=== PATIENT | male | born 1980 | race Caucasian/White ===

== ENCOUNTER 2018-10-16 15:50 | Observation (INO) ==
[2018-10-16] MEDS ORDERED: ONDANSETRON 4 MG/2 ML VIAL IVP ONE (16:14)
[2018-10-16] MEDS ORDERED: MORPHINE SULFATE 4 MG/1 ML IVP ONE ×2 (16:14→17:51)
[2018-10-16] MEDS ORDERED: Sodium Chloride 0.9% 1,000 ML PRIMARY IV ONE ×2 (16:15→16:37)
[2018-10-16] MEDS ORDERED: ONDANSETRON 4 MG/2 ML VIAL ONE (16:35)
[2018-10-16 16:52] LABS: BILIRUBIN,URINE NEGATIVE (NEG); CLARITY,URINE CLEAR (CLEAR); COLOR,URINE YELLOW (Y); GLUCOSE, URINE (UA) NEGATIVE (NEG); OCCULT BLOOD,URINE Trace-intact (NEG); PROTEIN,URINE NEGATIVE (NEG); UROBILINOGEN,URINE 0.2 EU/dL (0.2)
[2018-10-16 17:02] LABS: BACTERIA,URINE RARE; RBC,URINE 0-3 /hpf; URINE SAMPLE TYPE CLEAN CATCH URINE
[2018-10-16 17:05] LABS: BLOOD UREA NITROGEN 20 mg/dL (7-22); BUN/CREATININE RATIO 15.38 (6-20); SERUM ALBUMIN 4.3 g/dL (3.5-4.8)
--- NOTE | 2018-10-16 17:20 | DI ---
XR PELVIS 1-2VW,10/16/2018 4:13 PM: Clinical History: Trauma Previous Exam: None at this facility. Findings: A single frontal radiograph of the pelvis is obtained, and demonstrates anatomic alignment without fr actures. There is new bone formation at the head neck junction of both hips. Evaluation of the lumbar spine is unremarkable. A nonobstructive bowel gas pattern is seen. Impression: 1. No fracture. 2. 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 Correlate clinically.
--- NOTE | 2018-10-16 17:32 | DI ---
CT Chest WO Contrast,10/16/2018 4:11 PM: Clinical History: Trauma Previous Exam: None at this facility. Findings: Multiple helically acquired CT images are obtained through the chest without contrast, and demonstrat e airspace disease within the right lung base. There is no evidence of pneumothorax. There are no infiltrate nor effusion. The ribs appear grossly normal. There is some subsegmental atelectasis extending from the major fissu re on the right. There is elevation of the right hemidiaphragm. Skeletal structures are unremarkable as well. There is no mediastinal lymphadenopathy. The upper abdomen is unremarkable. Skeletal structures are unremarkable. Impression: Airspace disease within the dependent portion of the right lung base as well as some curvilinear incr eased density extending from the major fissure to the right lung base posteriorly. This is consistent with mild contusion but there is no evidence of pneumothorax.
--- NOTE | 2018-10-16 17:36 | DI ---
CT Abdomen/Pelvis WO Contrast,10/16/2018 4:11 PM: Clinical History: Fall from a horse. Previous Exam: None at this facility. Findings: Multiple helically acquired CT images are obtained through the abdomen and pelvis without contrast. T here are nondisplaced fractures of the right L3 and L4 transverse processes. The lung bases demonstra te some subsegmental atelectasis on the right. The liver, kidneys, spleen, pancreas and adrenals are unremarkable. The urinary bladder is unremarkab le. The appendix is normal. There is no layering fluid. Small and large bowel loops are unremarkable. The anterior abdominal wall subcutaneous fat is normal. There is no intra-abdominal lymphadenopathy. Impression: 1. Nondisplaced right third and fourth lumbar transverse process fractures. 2. No solid or hollow visceral injury.
[2018-10-16 17:44] LABS: BASOPHILS # (AUTO) 0.03 10*3/UL; BASOPHILS % (AUTO) 0.3 % (0-1); EOSINOPHILS # (AUTO) 0.19 10*3/UL; EOSINOPHILS % (AUTO) 1.7 % (0-8); Hematocrit [HCT] 48.3 % (42.0-52.0); Hemoglobin [HGB] 16.3 g/dL (14.0-18.0); MEAN CORPUSCULAR HEMOGLOBIN 28.8 PG (27-31); MEAN CORPUSCULAR HGB CONC 33.7 g/dL (33-37); MEAN CORPUSCULAR VOLUME 85.5 FL (80-90); MEAN PLATELET VOLUME 10.8 FL (7.4-12.2); MONOCYTES # (AUTO) 0.52 10*3/UL (0.3-0.8); MONOCYTES % (AUTO) 4.7 % (5-15); NEUTROPHILS # (AUTO) 8.03 10*3/UL; RED BLOOD COUNT 5.65 10^6/uL (4.70-6.10)
[2018-10-16 17:46] LABS: PLATELET MORPHOLOGY COMMENT NORMAL MORPHOLOGY (NORM); RBC MORPHOLOGY COMMENT NORMAL MORPHOLOGY (NORM); WBC MORPHOLOGY COMMENT NORMAL MORPHOLOGY (NORM)
[2018-10-16 17:47] LABS: LIPASE 133 IU/L (23-300)
--- NOTE | 2018-10-16 17:47 | EKG ---
[address] [address] Measurements Intervals [place] Rate: 76 P: 31 CO: 175 QRS: 62 QRSD: 93 T: 53 QT: 368 QTc: 398 Interpretive Statements SINUS RHYTHM No previous ECG available for comparison Electronically Signed On 10-17-18 11:20:50 MST by Luis Fernando Katz [email or web address]
[2018-10-16] MEDS ORDERED: LORazepam 2 MG/1 ML VIAL IVP ONE (17:51)
[2018-10-16] MEDS ORDERED: ONDANSETRON 4 MG/2 ML VIAL IVP PRN (18:29)
[2018-10-16] MEDS ORDERED: [UNRECOGNIZED DRUG - OTHER] IH SCH (18:29)
[2018-10-16] MEDS ORDERED: BUDESONIDE IH SCH (18:29)
[2018-10-16] MEDS ORDERED: KETOROLAC 15 MG/1 ML VIAL IVP PRN (18:29)
[2018-10-16] MEDS ORDERED: FORMOTEROL FUMARATE IH SCH (18:29)
[2018-10-16] MEDS ORDERED: CALCIUM CARBONATE 500 MG (TUMS) CHEWABLE TABLET PO PRN (18:29)
[2018-10-16] MEDS ORDERED: ALBUTEROL SULFATE 8.5 GM HFA INHALER INH PRN (18:29)
[2018-10-16] MEDS ORDERED: LIDOCAINE W/ SODIUM BICARB 0.5 ML SYR SUBD PRN (18:29)
--- NOTE | 2018-10-16 18:43 | PDOC ---
Multiple Trauma HPI - General Chief Complaint: Trauma Stated Complaint: thrown from horse Date Seen by Provider: 10/16/18 Time Seen by Provider: 16:55 Source: POSITIVE: Patient, Spouse Exam Limitations: POSITIVE: No limitations Nurse's Notes Reviewed & Considered: Yes - Record Incomplete - History of Present Illness Initial Comments: This is a well-developed, well-nourished, 38-year-old male, who comes in today with complaints of back pain after being thrown off a horse. 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 He presents now with right-sided lower back pain and pelvic pain. He denies having hit his head and no loss of consciousness, denies any chest pain o r shortness of breath, no nausea vomiting or diarrhea, no hematuria dysuria, no rashes, no headache, no vision changes, no sore throat, no fever chills or sweats. Have you received a tetanus shot in the past 10 years?: Yes Body Location Affected: REPORTS: Back Timing: REPORTS: Abrupt Duration: 1 hour Severity: Severe Quality: REPORTS: "Pain" Location at Time of Onset: REPORTS: County Associated Symptoms: REPORTS: Recalls Injury, Recalls Coming to ER Any Prior Injuries Related to Current Complaint?: No - Patient Home Medications Home Medications: Home Medications Albuterol Sulfate [Proair Hfa] 8.5 gm IH PRN 10/16/18 Budesonide/Formoterol Fumarate [Symbicort 160-4.5 Mcg Inhaler] 10.2 gm IH PRN 10/16/18 - Patient Allergies Allergies/Adverse Reactions: Allergies Allergy/AdvReac Type Severity Reaction Status Date / Time No Known Allergies Allergy Unverified 10/16/18 16:06 Past Medical History - heen HEENT History: Denies History Cardiovascular History: Denies History Respiratory History: Asthma Gastrointestinal History: Denies History Genitourinary History: Denies History Endocrine History: Denies History Musculoskeletal History: Denies History Prosthesis or Implant: No Neurological History: Denies History Blood Disorders: Denies History Psychiatric History: Denies History History of Sexually Transmitted Diseases: No Male Reproductive History: Denies History Cancer History: Denies History In Past Year Been Physically Harmed or Verbally Threatened: No History of MDRO: No History of Other Communicable Diseases: No Tobacco Use: Never Smoker In the Past 12 Months, Have Used or Abuse Any Substance: None ROS Constitution: REPORTS: Denies Symptoms Cardiovascular: REPORTS: Denies Cardiac Symptoms Respiratory: REPORTS: Denies Resp Symptoms Neurological: REPORTS: Denies Neuro Symptoms Gastrointestinal: REPORTS: Denies GI Symptoms Endocrine: REPORTS: Denies Symptoms Musculoskeletal: REPORTS: Back Pain Genitourinary: REPORTS: Denies Symptoms Eyes: REPORTS: Denies Symptoms ENT: REPORTS: Denies Symptoms Skin: REPORTS: Denies Skin Symptoms Lympathic: REPORTS: Denies Lympathic Symptoms Immunologic: POSITIVE: Denies Symptoms Psychiatric: POSITIVE: Denies Psych Symptoms Multiple Trauma Exam - General Appearance General Appearance: POSITIVE: Alert, Cooperative, No Acute Distress, No Evidence of Trauma - HEENT Head / Face: POSITIVE: Atraumatic, Normal Inspection, No Facial Swelling Eyes: POSITIVE: Inspection Normal, PERRL, EOM's Intact, Eyelids Uninjured, Conjunctivae Uninjured, No Nystagmus, No Globe Trauma, Sclera Normal Ears: POSITIVE: Ears Normal Inspection, Auricle Normal Nose: POSITIVE: Inspection Normal, No Apparent Trauma, Nares Normal, No CSF Leak Oropharynx: POSITIVE: External Inspection Nml, Pharynx Inspect. Nml, Airway Intact, Voice Normal, Moist Mucous Membranes, No Oral Injury, Lips Normal, Gums Normal, No Drooling, No Thrush, Normal Gag Reflex Dental: POSITIVE: No Dental Injury - Pupil Size Pupil Size: 5 mm: Bilateral - Neck Neck: POSITIVE: Non Tender, Painless ROM, Trachea Midline, Nexus Criteria Negative - Respiratory / CVS Respiratory / CVS: POSITIVE: Chest Non Tender, No Ecchymosis, Breath Sounds Normal, No Respiratory Distress, Heart Sounds Normal, Regular Rate/Rhythm Peripheral Pulses: Radial (R): 4+ - Abdomen Abdomen: Soft: (All Quadrants), Normal Bowel Sounds: (All Quadrants), Denies Tenderness: (All Quadrants), No Splenomegaly: (All Quadrants), No Hepatomegaly: (All Quadrants), No Guarding: (All Quadrants), No Rebound: (All Quadrants), No Palpable Pulse: (All Quadrants), No Palpabale Mass: (All Quadrants), No Distenti on: (All Quadrants), No Rigidity: (All Quadrants) - Neuro / Psych Neuro / Psych: POSITIVE: Oriented X3, 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 Tenderness (Lumbar vertebrae and sacral vertebrae as well as the right SI joint.), CVA Tenderness (R), Muscle Spasm - Extremities Extremity Assessment: Non-Tender: (ALL), Normal ROM: (ALL), No Edema: (ALL), Normal Inspection: (ALL), No Swelling: (ALL), Pelvis Stable: (ALL) Joint Exam: POSITIVE: Joints Normal, Normal ROM, Normal Weight Bearing Procedures - Laceration/Wound Repair Did patient have a laceration repair: No Multiple Trauma Progress - Results Reviewed by me Xrays/CTs/US Reviewed by me: Yes Lab Results Reviewed by Me: Yes Lab Results:: Laboratory Results 10/16/18 10/16/18 10/16/18 16:39 16:39 16:39 WBC 11.00 H RBC 5.65 Hgb 16.3 Hct 48.3 MCV 85.5 MCH 28.8 MCHC 33.7 RDW Std Deviation 43.0 RDW Coeff of [place] 13.8 Plt Count 267 MPV 10.8 Immature Gran % (Auto) 0.3 Neut % (Auto) 73.0 Lymph % (Auto) 20.0 [place] % (Auto) 4.7 L Eos % (Auto) 1.7 Baso % (Auto) 0.3 Immature Gran # (Auto) 0.03 Neut # (Auto) 8.03 Lymph # (Auto) 2.20 [place] # (Auto) 0.52 Eos # (Auto) 0.19 Baso # (Auto) 0.03 WBC Morphology Comment Normal morphology Plt Morphology Comment Normal morphology RBC Morph Comment Normal morphology PT 10.5 INR 1.03 Sodium 144 Potassium 5.0 Chloride 109 Carbon Dioxide 27 Anion Gap 8 BUN 20 Creatinine 1.3 Estimated GFR > 60 BUN/Creatinine Ratio 15.38 Glucose 78 Calculated Osmolality 299.0 H Calcium 9.9 Magnesium 2.0 Total Bilirubin 0.8 AST 46 ALT 43 Alkaline Phosphatase 70 Troponin I Total Protein 7.4 Albumin 4.3 Globulin 3.2 Albumin/Globulin Ratio 1.30 Amylase Lipase TSH Ur Collection Type Urine Color Urine Clarity Urine pH Ur Specific [place] Urine Protein Urine Glucose (UA) Urine Ketones Urine Occult Blood Urine Nitrate Urine Bilirubin Urine Urobilinogen Ur Leukocyte Esterase Urine RBC Urine WBC Ur Squamous Epith Cells Ur Renal Epithelial Cell Urine Crystals Urine Bacteria Urine Casts Urine Mucus Urine Trichomonas Urine Yeast Ur Culture Indicated? 10/16/18 10/16/18 10/16/18 16:39 16:39 16:39 WBC RBC Hgb Hct MCV MCH MCHC RDW Std Deviation RDW Coeff of [place] Plt Count MPV Immature Gran % (Auto) Neut % (Auto) Lymph % (Auto) [place] % (Auto) Eos % (Auto) Baso % (Auto) Immature Gran # (Auto) Neut # (Auto) Lymph # (Auto) [place] # (Auto) Eos # (Auto) Baso # (Auto) WBC Morphology Comment Plt Morphology Comment RBC Morph Comment PT INR Sodium Potassium Chloride Carbon Dioxide Anion Gap BUN Creatinine Estimated GFR BUN/Creatinine Ratio Glucose Calculated Osmolality Calcium Magnesium Total Bilirubin AST ALT Alkaline Phosphatase Troponin I < 0.012 Total Protein Albumin Globulin Albumin/Globulin Ratio Amylase 51 Lipase 133 TSH 0.833 Ur Collection Type Urine Color Urine Clarity Urine pH Ur Specific [place] Urine Protein Urine Glucose (UA) Urine Ketones Urine Occult Blood Urine Nitrate Urine Bilirubin Urine Urobilinogen Ur Leukocyte Esterase Urine RBC Urine WBC Ur Squamous Epith Cells Ur Renal Epithelial Cell Urine Crystals Urine Bacteria Urine Casts Urine Mucus Urine Trichomonas Urine Yeast Ur Culture Indicated? 10/16/18 16:45 WBC RBC Hgb Hct MCV MCH MCHC RDW Std Deviation RDW Coeff of [place] Plt Count MPV Immature Gran % (Auto) Neut % (Auto) Lymph % (Auto) [place] % (Auto) Eos % (Auto) Baso % (Auto) Immature Gran # (Auto) Neut # (Auto) Lymph # (Auto) [place] # (Auto) Eos # (Auto) Baso # (Auto) WBC Morphology Comment Plt Morphology Comment RBC Morph Comment PT INR Sodium Potassium Chloride Carbon Dioxide Anion Gap BUN Creatinine Estimated GFR BUN/Creatinine Ratio Glucose Calculated Osmolality Calcium Magnesium Total Bilirubin AST ALT Alkaline Phosphatase Troponin I Total Protein Albumin Globulin Albumin/Globulin Ratio Amylase Lipase TSH Ur Collection Type Clean catch urine Urine Color Yellow Urine Clarity Clear Urine pH 7.0 Ur Specific [place] 1.020 Urine Protein Negative Urine Glucose (UA) Negative Urine Ketones Negative Urine Occult Blood Trace-intact H Urine Nitrate Negative Urine Bilirubin Negative Urine Urobilinogen 0.2 Ur Leukocyte Esterase Negative Urine RBC 0-3 Urine WBC None Ur Squamous Epith Cells None Ur Renal Epithelial Cell None Urine Crystals None Urine Bacteria Rare Urine Casts None Urine Mucus None Urine Trichomonas None Urine Yeast None Ur Culture Indicated? Culture not set CBC and BMP: 10/16/18 16:39 10/16/18 16:39 - Patient's Progress Pain Medication Addressed: POSITIVE: Yes Status: POSITIVE: Improved MDM / ED Course: Patient was evaluated, IV started, blood drawn and sent to the lab for studies, CT of chest and abdomen and pelvis were obtained. Findings: CT scan shows right transverse process fractures of L1, L2, and L3. Pulmonary contusions. Assessment: Polytrauma. Plan: Patient being admitted by Dr. Barbosa for polytrauma. - Consult Consulting MD will see pt:: POSITIVE: [facility] [place] Admit Counseled: POSITIVE: Patient, Family, RE: Lab Results, RE: Radiology Results, RE: DX Patient Care Time - Estimated PCT Patient Care Time (In Minutes): 45 Vital Signs - VS Reviewed Vital Signs Reviewed: Yes Discharge Clinical Impression: Lumbar transverse process fracture, Pulmonary contusion Discharge Disposition: Admit to Observation Condition: Fair Date Decision to Admit to Inpatient: 10/16/18 Time Decision to Admit to Inpatient: 17:30
--- NOTE | 2018-10-16 19:45 | PDOC ---
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 He was chasing down a calf and he came off his horse landing on the ground. He's had severe back and right flank pain since that time. He denies any abdominal pain. He denies being shortness of breath. Patient had a CT scan of the chest which showed pulmonary contusions. CT scan of the abdomen and pelvis shows that he has transverse process fractures L3 and L4. There is no intra-abdominal injuries. Past Medical History Medical History: History of asthma Tobacco Use: Never Smoker Do you dip or chew tobacco: Yes (1 can/day) In the Past 12 Months, Have Used or Abuse Any of the Following Substance: None Medication / Allergies Home Medications: Home Medications Medication Instructions Recorded Confirmed Type Albuterol Sulfate [Proair Hfa] 8.5 gm IH PRN 10/16/18 10/16/18 History Budesonide/Formoterol Fumarate 10.2 gm IH PRN 10/16/18 10/16/18 History [Symbicort 160-4.5 Mcg Inhaler] Allergies/Adverse Reactions: Allergies Allergy/AdvReac Type Severity Reaction Status Date / Time No Known Allergies Allergy Unverified 10/16/18 16:06 Exam - Vitals Vital Signs: Vital Signs Temperature 97.2 F Temperature Source Temporal Artery Scan Pulse Rate [Pulse Oximeter] 78 Respiratory Rate 20 Blood Pressure [Left Arm] 125/73 Pulse Ox 94 Oxygen Delivery Method Room Air Height 6 ft 1 in Weight 240 lb 2 oz - General General Appearance: No Acute Distress, Cooperative, Mild Distress - Head Head Exam: Normocephalic, Atraumatic - Eye Eye Exam: POSITIVE: PERRL, EOMI - Neck Neck Exam: Normal Inspection, Full ROM, No Tenderness - Respiratory Respiratory Exam: POSITIVE: Clear to Auscultation - Bilaterally - Cardiovascular Cardiovascular Exam: POSITIVE: RRR, No Murmur, No Clicks, No Gallops, No Rubs, PMI Non-Displaced - GI/Abdominal GI/Abdominal Exam: POSITIVE: Normal Bowel Sounds, Non Tender, Non Distended, Soft, No Masses, No Hepatomegaly, No Splenomegaly, No Organomegaly - Rectal Rectal Exam: POSITIVE: Deferred - External Exam: POSITIVE: Deferred Exam: POSITIVE: Deferred - Extremities Extremities Exam: POSITIVE: Full ROM, No Cyanosis Present Additional Extremities Exam Details: Patient moves all extremities command. His good strength of upper extremities. Results - Labs CBC and BMP: 10/16/18 16:39 10/16/18 16:39 Assessment and Plan - Patient Problems (1) Pulmonary contusion Current Visit: Yes Status: Acute Code(s): S27.329A - Contusion of lung, unspecified, initial encounter (2) Lumbar transverse process fracture Current Visit: Yes Status: Acute Code(s): S32.009A - Unspecified fracture of unspecified lumbar vertebra, initial encounter for closed fracture - Assessment / Plan Additional Assessment/Plan Details: At this point patient just needs be on pain medication for his back. Since we get his pain under control at think he will be able to discharge home. He'll does deep breathing cough for his pulmonary contusion results without problems. We'll continue to monitor this.
[2018-10-16] MEDS ORDERED: CYCLOBENZAPRINE 10 MG TABLET PO PRN (19:46)
[2018-10-16] MEDS: HYDROcodone/IBUPROFEN 7.5 MG/200 MG TABLET PO PRN (21:46)
[2018-10-17] MEDS: HYDROcodone/IBUPROFEN 7.5 MG/200 MG TABLET PO PRN ×2 (04:16→10:03)
--- NOTE | 2018-10-17 09:21 | DCSUMMARY ---
Discharge Summary Admit Date: 10/16/18 Discharge Date: 10/17/18 Admitting Diagnosis: fracture of transverse process of L3-L4; pulmonary contusions Discharge Diagnosis: Fracture transverse process of L3-L4. Pulmonary contusion Hospital Course: Patient was admitted the hospital after having an axillary came off his horse. He fractured his back at L3-L4 transverse process. Possible pulmonary contusion also. His Magan for observation and pain control. Next morning he was feeling better on the pain medication. He is having no respiratory distress. Is able to discharge home he'll follow up in 2 weeks. Patient will take a combination of [place] and ibuprofen for pain. Also Flexeril. Exam - Vitals Vital Signs: Vital Signs Temperature 98.4 F Temperature Source Temporal Artery Scan Pulse Rate [Pulse Oximeter] 65 Respiratory Rate 22 Blood Pressure [Left Arm] 100/49 Pulse Ox 93 Oxygen Delivery Method Room Air Height 6 ft 1 in Weight 240 lb 2 oz - General General Appearance: No Acute Distress, Cooperative Patient Problems - Patient Problem List (1) Pulmonary contusion Current Visit: Yes Status: Acute Code(s): S27.329A - Contusion of lung, unspecified, initial encounter Category: Medical (2) Lumbar transverse process fracture Current Visit: Yes Status: Acute Code(s): S32.009A - Unspecified fracture of unspecified lumbar vertebra, initial encounter for closed fracture Category: Medical
[2018-10-17 10:11] VITALS: BP 123/77; RESP 16; TEMP 96.9; O2SAT 96
== END 2018-10-17 10:37 | disposition home or self-care (01) ==
LOC: MED/SURG 15:50 → ER 15:50 → MED/SURG 18:25
PROVIDERS: ADMIT Surgery; ATTEND Surgery